=== PATIENT | male | born 1955 | race Caucasian/White ===

== ENCOUNTER 2021-04-20 07:40 | Outpatient (CLI) | payer OTHER ==
[~2021-04-20 07:40] MED LIST: ASA 325MG EC TAB PO; AVAPRO300 MG PO; PLAVIX 75MG PO
== END 2021-04-20 07:47 | disposition home or self-care (01) ==
LOC: TOM 07:40
PROVIDERS: ATTEND Urology
DX: N20.0 Calculus of kidney (principal)